=== PATIENT | female | born 1980 | race Caucasian/White ===

== ENCOUNTER 2020-06-24 10:04 | Outpatient (REF) | payer OTHER, SELFPAY ==
[2020-06-24 11:47] LABS: Hemoglobin 13.1 g/dl (12.0-16.0); Mean Corpuscular HGB Conc 32.8 g/dl (31.0-35.0); Mean Corpuscular Hemoglobin 30.1 pg (27.0-33.0); Mean Platelet Volume 10.1 fL (9.4-12.3); Platelet Count 343 X10*3/uL (160-400); Red Blood Count 4.35 X10*6/uL (4.20-5.50); Red Cell Distribution Width 12.2 % (11.0-16.0); White Blood Count 7.8 X10*3/uL (4.8-10.8)
[2020-06-24 12:03] LABS: Glucose Urine UA NEG (NEG); Leukocyte Esterase Urine NEG (NEG); Nitrite Urine NEG (NEG); PH 6.5 (5.0-8.0); Urine Blood NEG (NEG); Urine Ketones NEG (NEG); Urine Protein NEG (NEG-TRACE)
[2020-06-24 12:10] LABS: Appearance Urine CLOUDY; Color Urine YELLOW
[2020-06-24 12:18] LABS: Bacteria Urine 1+ /LPF; RBC Urine 0 /HPF (0); Squamous Epithelial Cell Urine 3+ /LPF; WBC Urine 0 /HPF (0-4)
[2020-06-24 12:22] LABS: Alanine Aminotransferase 22 U/L (0-31); Albumin Level 4.5 g/dL (3.5-5.0); Alkaline Phosphatase 64 U/L (39-117); Aspartate Amino Transferase 24 U/L (5-31); Bilirubin Total 0.4 mg/dL (0.0-1.0); Blood Urea Nitrogen 11 mg/dL (9-16); Cholesterol 196 mg/dL; Estimated Glomerular Filt Rate > 60; Glucose Fasting 89 mg/dL (60-99); HDL Cholesterol 54 mg/dL; LDL Cholesterol Calculated 131 mg/dl; Total Protein 7.2 g/dL (6.5-8.0); Triglycerides 56 mg/dL
[2020-06-24 12:37] LABS: Anion Gap 12 (12-20); Carbon Dioxide 25 mmol/L (22-29); Chloride 104 mmol/L (96-108); Potassium 4.3 mmol/l (3.3-5.1); Sodium 137 mmol/L (135-145)
== END 2020-06-24 10:05 | disposition home or self-care (01) ==
LOC: HO.HMGCLDS 10:04
PROVIDERS: PCP Internal Medicine; Visit Provider Internal Medicine
DX: Z00.00 Encounter for general adult medical examination without abnormal findings (principal)
CPT/HCPCS: 36415; 80053; 80061; 81001; 85027

== ENCOUNTER 2021-12-02 08:39 | Outpatient (REF) | payer OTHER, SELFPAY ==
[2021-12-02 11:40] LABS: Appearance Urine HAZY; Color Urine YELLOW; Glucose Urine UA NEG (NEG); Leukocyte Esterase Urine NEG (NEG); Nitrite Urine NEG (NEG); Specific Gravity - Urine 1.025 (1.005-1.025); Urine Blood 3+ (NEG); Urine Ketones NEG (NEG); Urine Protein NEG (NEG-TRACE)
[2021-12-02 11:52] LABS: Hemoglobin 13.3 g/dl (12.0-16.0); Mean Corpuscular HGB Conc 32.4 g/dl (31.0-35.0); Mean Corpuscular Volume 92.3 fL (80.0-98.0); Mean Platelet Volume 10.5 fL (9.4-12.3); Platelet Count 310 X10*3/uL (160-400); Red Blood Count 4.44 X10*6/uL (4.20-5.50); Red Cell Distribution Width 12.8 % (11.0-16.0); White Blood Count 6.6 X10*3/uL (4.8-10.8)
[2021-12-02 12:00] LABS: Alanine Aminotransferase 18 U/L (0-31); Albumin Level 4.4 g/dL (3.5-5.0); Alkaline Phosphatase 59 U/L (39-117); Anion Gap 11 (12-20); Aspartate Amino Transferase 21 U/L (5-31); Bilirubin Total 0.6 mg/dL (0.0-1.0); Blood Urea Nitrogen 11 mg/dL (9-16); Calcium 9.6 mg/dL (8.4-10.2); Carbon Dioxide 25 mmol/L (22-29); Chloride 107 mmol/L (96-108); Cholesterol 197 mg/dL; Estimated Glomerular Filt Rate > 60; Glucose Fasting 98 mg/dL (60-99); HDL Cholesterol 52 mg/dL; LDL Cholesterol Calculated 131 mg/dl; Potassium 4.6 mmol/L (3.3-5.1); Sodium 138 mmol/L (135-145); Total Protein 7.5 g/dL (6.5-8.0); Triglycerides 71 mg/dL
[2021-12-02 12:20] LABS: Vitamin D 25-OH Total 35.2 ng/mL (>30)
[2021-12-02 12:51] LABS: Mucus Urine 1+ /LPF; Squamous Epithelial Cell Urine 1+ /LPF; WBC Urine 0 /HPF (0-4)
== END 2021-12-02 08:40 | disposition home or self-care (01) ==
LOC: HO.HMGCLDS 08:39
PROVIDERS: PCP Internal Medicine; Visit Provider Internal Medicine
DX: Z00.00 Encounter for general adult medical examination without abnormal findings (principal)
CPT/HCPCS: 36415; 80053; 80061; 81001; 82306; 85027

== ENCOUNTER 2021-12-18 08:57 | Outpatient (REF) | payer OTHER, SELFPAY ==
[2021-12-18 11:19] LABS: Appearance Urine CLEAR; Color Urine YELLOW; Glucose Urine UA NEG (NEG); Leukocyte Esterase Urine NEG (NEG); Nitrite Urine NEG (NEG); PH 6.5 (5.0-8.0); Urine Blood NEG (NEG); Urine Ketones NEG (NEG); Urine Protein NEG (NEG-TRACE)
[2021-12-18 12:10] LABS: Squamous Epithelial Cell Urine 1+ /LPF
[2021-12-18 12:11] LABS: Bacteria Urine TRACE /LPF; RBC Urine 0-2 /HPF (0); WBC Urine 0 /HPF (0-4)
== END 2021-12-18 08:58 | disposition home or self-care (01) ==
LOC: HO.HMGCLDS 08:57
PROVIDERS: Visit Provider Internal Medicine
DX: Z00.00 Encounter for general adult medical examination without abnormal findings (principal); R31.29 Other microscopic hematuria
CPT/HCPCS: 81001

== ENCOUNTER 2023-02-18 10:08 | Outpatient (REF) | payer OTHER, SELFPAY | END 2023-02-18 10:09 | disposition home or self-care (01) | LOC: HO.HMGCLDS 10:08 | PROVIDERS: PCP Internal Medicine; Visit Provider Internal Medicine | DX: Z00.00 Encounter for general adult medical examination without abnormal findings (principal); E04.9 Nontoxic goiter, unspecified | CPT/HCPCS: 36415; 80053; 80061; 84443; 85025 ==

== ENCOUNTER 2023-03-08 09:56 | Outpatient (REF) | payer OTHER, SELFPAY ==
--- NOTE | ~2023-03-08 | US_ITS ---
EXAMINATION: US THYROID CLINICAL INFORMATION: Nontoxic goiter, unspecified. COMPARISON: None available. TECHNIQUE: Linear transducer grayscale and color Doppler examination with attention to the region of the thyroid. FINDINGS: SIZE: Measurements of the thyroid lobes and nodules are given in sagittal, anteroposterior and transverse dimensions respectively. Right Thyroid Lobe: 4.2 x 1.3 x 1.5 cm, volume 4.3 mL. Parenchyma: The gland echotexture is homogeneous. Thyroid vascularity is mildly increased. Left Thyroid Lobe: 4.1 x 1.1 x 1.5 cm, volume 3.5 mL. Parenchyma: The gland echotexture is homogeneous. Thyroid vascularity is mildly increased. Isthmus: 0.4 cm in maximum AP dimension. Estimated total number of nodules greater than or equal to 1 cm: 0. Flowers Salesperson nodules are described as follows: 1. Location: Left medial. Size: 0.3 x 0.2 x 0.4 cm, volume 0.01 mL. Nodule characteristics: Composition: Spongiform (0). Echogenicity: Anechoic (0). Shape: Not taller than wide (0). Margins: Smooth (0). Echogenic Foci: None (0). ACR TI-RADS total points: 0 ACR TI-RADS category: 1 2. Location: Left lateral. Size: 0.7 x 0.2 x 0.3 cm, volume 0.02 mL. Nodule characteristics: Composition: Spongiform (0). Echogenicity: Anechoic (0). Shape: Not taller than wide (0). Margins: Smooth (0). Echogenic Foci: None (0). ACR TI-RADS total points: 0 ACR TI-RADS category: 1 NODES: No lymphadenopathy is seen in the tissue surrounding the thyroid gland. US/US thyroid IMPRESSION: Left 0.7 cm TR 1 thyroid nodule. Thyroid gland vascularity is mildly increased. ACR TI-RADS RECOMMENDATION REFERENCE: Ultrasound-guided fine-needle aspiration, followup ultrasound, no further follow up. * TR1 (0 point) and TR2 (2 points): No FNA or follow up. * TR3 (3 points): FNA if more than or equal to 2.5 cm in maximum dimension, followup ultrasound in 1, 3 and 5 years if 1.5 to 2.4 cm in maximum dimension. * TR4 (4-6 points): FNA if more than or equal to 1.5 cm in maximum dimension, followup ultrasound in 1, 2, 3 and 5 years if 1 to 1.4 cm in maximum dimension. * TR5 (more than or equal to 7 points): FNA if more than or equal to 1 cm in maximum dimension, followup ultrasound every year for 5 years if 0.5 to 0.9 cm in maximum dimension. * TR3, TR4 or TR5 nodules that are below the size threshold for followup receive no follow up.
== END 2023-03-08 09:57 | disposition home or self-care (01) ==
LOC: HO.HMGCX 09:56
PROVIDERS: PCP Internal Medicine; Visit Provider Internal Medicine
DX: E04.9 Nontoxic goiter, unspecified (principal)
CPT/HCPCS: 76536

== ENCOUNTER 2023-08-06 08:54 | Outpatient (AMB) | payer OTHER, SELFPAY ==
[2023-08-06 11:21] VITALS: BP 118/78; PULSE 79; TEMP 37.1; O2SAT 97; BMI 30.3
--- NOTE | 2023-08-06 11:21 | AM.OFFWIN_ITS ---
Intake Vital Signs 08/06/23 11:21 Height 5 ft 5 in Weight 182 lb BMI 30.3 BP 118/78 Blood Pressure Location Lt brachial Position Sitting Pulse 79 Pulse Source Pulse Oximeter Temp 98.7 F Temp Source Oral Pulse Oximetry (%) 97 Oxygen Delivery Method Room Air Intake Visit Reasons: EP dry cough [id number] Intake Note: Patient is here with dry cough for 3+ weeks. Patient Tobacco Use Status: Never used Tobacco Allergies No Known Allergies Allergy (Verified 08/06/23 11:21) Do you need a note to return to daycare/school/sports/work: No HPI EP dry cough [id number] HPI Details 43 year old female patient presents toda y with a 3 week history of a dry cough. Reports she has tried otc medication and many natural remedies for the cough without relief. Denies any fever, chills, or shortness of breath. Denies any other sick symptoms. [facility] Medical History Microscopic hematuria Asthma Allergic rhinitis Normal colonoscopy Annual physical exam Mammogram normal Normal Pap smear Surgical History H/O colonoscopy No pertinent past surgical history Family History Father Stroke Mother Brain tumor Brother Colon cancer Brother No problems noted. Brother No problems noted. Paternal Aunt Colon cancer Sister No problems noted. Sister No problems noted. Sister No problems noted. Sister No problems noted. Daughter No problems noted. Social History Housing: House Alcohol intake: current Alcohol intake frequency: a few times a month Patient Tobacco Use Status: Never used Tobacco e-Cigarette/Vaping Use: Never Used service: No Current occupational status: employed Cognitive needs: No Hearing needs: No Vision needs: No Review of Systems Const All systems reviewed & are unremarkable except as noted in HPI and below Physical Exam Vital Signs: Last Vital Signs Temp 98.7 F 08/06/23 11:21 Pulse 79 08/06/23 11:21 BP 118/78 08/06/23 11:21 Pulse Ox 97 08/06/23 11:21 Oxygen Delivery Method Room Air 08/06/23 11:21 BMI result Body Mass Index 30.3 Const General: cooperative and no acute distress HEENT Head: Yes normal to inspection and Yes normocephalic Ears: hearing grossly normal bilaterally General nose exam: Normal external nose present Face and sinus: Yes normal facial exam Throat: Yes posterior oropharynx normal Neck Neck: Yes no lymphadenopathy Resp Effort & Inspection: normal respiratory effort and Actively coughing Quality: dry (actively coughing) Auscultation: clear to auscultation bilaterally Cardio Jugular venous distension: no JVD Palpation: normal PMI Rate: regular rate Rhythm: regular rhythm Skin General skin exam: no rashes or lesions noted Extrem General: Yes capillary refill normal and Yes no clubbing, cyanosis or edema Psych Mental Status: mental status grossly normal Speech and movement: Normal speech and movement present Assessment & Plan Assessment & Plan (1) Persistent cough for 3 weeks or longer: Code(s): R05.3 - Chronic cough Plan: Will start on prednisone and benzonatate for persistent dry cough. Reviewed indications, use, possible s/e of medications. She can continue to utilize home remedies (tea, honey etc.) for her symptoms. If she does not improve with treatment or if she develops any worsning cough/shortness of breath, she should return to the clinic for further evaluation. She agrees to plan. Medications: New benzonatate 100 mg PO BID PRN 14 caps 0RF cough 7 days R05.9 - Cough, unspecified prednisone 20 mg PO BID 10 tabs 0RF 5 days R05.3 - Chronic cough Coding Level of Care Code Est Pt Level 3 (47093) Diagnoses Persistent cough for 3 weeks or longer R05.3
== END 2023-08-06 12:05 | disposition home or self-care (01) ==
PROVIDERS: PCP Internal Medicine; Visit Provider Nurse Practitioner Family
DX: R05.3 Chronic cough (principal)
CPT/HCPCS: 99213

== ENCOUNTER 2023-10-30 09:13 | Outpatient (REF) | payer OTHER, SELFPAY ==
[2023-10-30 12:29] LABS: Alanine Aminotransferase 24 U/L (0-31); Albumin Level 4.4 g/dL (3.5-5.0); Alkaline Phosphatase 66 U/L (39-117); Anion Gap 11 (12-20); Aspartate Amino Transferase 22 U/L (5-31); Bilirubin Total 0.7 mg/dL (0.0-1.0); Blood Urea Nitrogen 9 mg/dL (9-16); Calcium 9.9 mg/dL (8.4-10.2); Carbon Dioxide 26 mmol/L (22-29); Chloride 108 mmol/L (96-108); Cholesterol 214 mg/dL (<200); Estimated Glomerular Filt Rate > 60; Glucose Fasting 96 mg/dL (60-99); HDL Cholesterol 51 mg/dL (>40); LDL Cholesterol Calculated 143 mg/dL (<100); Potassium 4.2 mmol/L (3.3-5.1); Sodium 141 mmol/L (135-145); Total Protein 7.6 g/dL (6.5-8.0); Triglycerides 101 mg/dL (<150)
== END 2023-10-30 09:14 | disposition home or self-care (01) ==
LOC: HO.HMGCLDS 09:13
PROVIDERS: PCP Internal Medicine; Visit Provider Internal Medicine
DX: E78.5 Hyperlipidemia, unspecified (principal)
CPT/HCPCS: 36415; 80053; 80061

== ENCOUNTER 2024-02-11 13:21 | Outpatient (REF) | payer OTHER, SELFPAY ==
--- NOTE | ~2024-02-11 | US_ITS ---
EXAMINATION: US THYROID CLINICAL INFORMATION: Nontoxic single thyroid nodule. COMPARISON: Ultrasound soft tissue head/neck thyroid dated 03/08/2023. TECHNIQUE: Linear transducer grayscale and color Doppler examination with attention to the region of the thyroid. FINDINGS: SIZE: Measurements of the thyroid lobes and nodules are given in sagittal, anteroposterior and transverse dimensions respectively. Right Thyroid Lobe: 4.1 x 1.4 x 1.2 cm, volume 3.8 mL. Previously 4.2 x 1.3 x 1.5 cm, volume 4.3 mL. Parenchyma: The gland echotexture is homogeneous. Thyroid vascularity is normal. Left Thyroid Lobe: 4.0 x 1.0 x 1.4 cm, volume 3.0 mL. Previously 4.1 x 1.1 x 1.5 cm, volume 3.5 mL. Parenchyma: The gland echotexture is homogeneous. Thyroid vascularity is normal. Isthmus: 0.42 cm in maximum AP dimension. Previously 0.40 cm. Estimated total number of nodules greater than or equal to 1 cm: 0. Internal Grinder Tender nodules are described as follows: 1. Location: Left inferior. Size: 0.33 x 0.12 x 0.31 cm, volume 0.01 mL. Previously: 0.35 x 0.15 x 0.40 cm, volume 0.01 mL. Nodule characteristics: Composition: Cystic(0). ACR TI-RADS total points: 0 Previous: 0 ACR TI-RADS category: 1 Previous: 1 Significant change in size (>/= 20% in 2 dimensions and minimal increase of 2 mm or 50% or greater increase in volume): No Change in features: No Change in ACR TI-RADS risk category: No 2. Location: Left mid. Size: 0.45 x 0.14 x 0.26 cm, volume 0.01 mL. Previously: 0.70 x 0.17 x 0.29 cm, volume 0.02 mL. Nodule characteristics: Composition: Spongiform (0). Echogenicity: Anechoic (0). Shape: Not taller than wide (0). Margins: Smooth (0). Echogenic Foci: None (0). ACR TI-RADS total points: 0 Previous: 0 ACR TI-RADS category: 1 Previous: 1 Significant change in size (>/= 20% in 2 dimensions and minimal increase of 2 mm or 50% or greater increase in volume): No Change in features: No Change in ACR TI-RADS risk category: No 3. Location: Left superior. Size: 0.33 x 0.18 x 0.26 cm, volume 0.01 mL. Previously: Not seen on the previous study. Nodule characteristics: Composition: Spongiform (0). Echogenicity: Anechoic (0). Shape: Not taller than wide (0). Margins: Smooth (0). Echogenic Foci: None (0). ACR TI-RADS total points: 0 ACR TI-RADS category: 1 NODES: No lymphadenopathy is seen in the tissue surrounding the thyroid gland. US/US thyroid IMPRESSION: Multiple subcentimeter thyroid nodules. This study was presented today February 23, 2024 for interpretation. Stat results provided at this time as requested by referring provider. ACR TI-RADS RECOMMENDATION REFERENCE: Ultrasound-guided fine-needle aspiration, follow up ultrasound, no further followup. * TR1 (0 point) and TR2 (2 points): No FNA or followup * TR3 (3 points): FNA if more than or equal to 2.5 cm in maximum dimension, follow up ultrasound in 1, 3 and 5 years if 1.5 to 2.4 cm in maximum dimension. * TR4 (4-6 points): FNA if more than or equal to 1.5 cm in maximum dimension, follow up ultrasound in 1, 2, 3 and 5 years if 1 to 1.4 cm in maximum dimension. * TR5 (more than or equal to 7 points): FNA if more than or equal to 1 cm in maximum dimension, follow up ultrasound every year for 5 years if 0.5 to 0.9 cm in maximum dimension. * TR3, TR4 or TR5 nodules that are below the size threshold for follow up receive no followup.
== END 2024-02-11 13:22 | disposition home or self-care (01) ==
LOC: HO.HMGCX 13:21
PROVIDERS: PCP Internal Medicine; Visit Provider Internal Medicine
DX: E04.1 Nontoxic single thyroid nodule (principal)
CPT/HCPCS: 76536

== ENCOUNTER 2024-02-23 12:53 | Outpatient (AMB) | payer OTHER, SELFPAY ==
[2024-02-23 13:12] VITALS: BP 118/74; PULSE 78; O2SAT 96; BMI 30.6
--- NOTE | 2024-02-23 13:12 | A.OFFPC_ITS ---
Vital Signs 02/23/24 13:12 Height 5 ft 5 in Weight 184 lb BMI 30.6 BP 118/74 Blood Pressure Location Rt brachial Position Sitting Pulse 78 Pulse Source Pulse Oximeter Pulse Oximetry (%) 96 Oxygen Delivery Method Room Air Intake Visit Reasons: Annual PE Intake Note: Pt is here today for PE. Allergies No Known Allergies Allergy (Verified 02/23/24 13:12) Medication List - Last Reconciled 02/23/24 by Ana Laura Lizama MD cholecalciferol (vitamin D3) (Vitamin D3) 50 mcg PO DAILY Tobacco use date assessed: 02/23/24 Dental Screening Dental Screen Date: 02/23/24 Did you have a dental visit in the last 12 months?: Yes Did you have a dental problem in the last 6 months where you did not have access to dental care?: No Was dental information given to patient?: Patient has dentist HPI Annual PE HPI Details Pt presents for PE. [facility] Medical History (Updated 02/23/24 @ 14:40 by Ana Laura Lizama MD) Microscopic hematuria Asthma Allergic rhinitis Normal colonoscopy Annual physical exam Mammogram normal Normal Pap smear Surgical History H/O colonoscopy No pertinent past surgical history Family History Father Stroke Mother Brain tumor Brother Colon cancer Brother No problems noted. Brother No problems noted. Paternal Aunt Colon cancer Sister No problems noted. Sister No problems noted. Sister No problems noted. Sister No problems noted. Daughter No problems noted. Social History Housing: House Alcohol intake: current Alcohol intake frequency: a few times a month Patient Tobacco Use Status: Never used Tobacco e-Cigarette/Vaping Use: Never Used service: No Current occupational status: employed Cognitive needs: No Hearing needs: No Vision needs: No Questionnaire PHQ-9 Over the last 2 weeks, how often have you been bothered by any of the following problems? 1. Little interest or pleasure in doing things: not at all 2. Feeling down, depressed, or hopeless: not at all 3. Trouble falling or staying asleep, or sleeping too much: not at all 4. Feeling tired or having little energy: not at all 5. Poor appetite or overeating: not at all 6. Feeling bad about yourself - or that you are a failure or have let yourself or your family down: not at all 7. Trouble concentrating on things, such as reading the newspaper or watching television: not at all 8. Moving or speaking so slowly that other people could have noticed. Or the opposite - being so fidgety or restless that you have been moving around a lot more than usual: not at all 9. Thoughts that you would be better off or of hurting yourself in some way: not at all Total score: 0 Depression Screening Interpretation: Negative Depression Screening Done: Yes Source: Developed by Drs. Boone Blum, Erin Vargas, Fredo Cormier and colleagues, with an educational fly from [employer]. Thrive Questionnaire Date Thrive assessed: 02/23/24 I am a: Patient What is your living situation today?: I have a steady place to live Within the past 12 months, did the food you bought not last and you didn't have the money to get more?: Never true Within the past 12 months, did you worry whether your food would run out before you got money to buy more?: Never true Do you have trouble paying for medicines?: No Do you have trouble getting transportation to medical appointments?: No Do you have trouble paying your heating and electricity bill?: No Do you have trouble taking care of your child, family member or friend?: No Do you have trouble with day-to-day activities such as bathing, preparing meals, shopping, managing finances, etc.?: No Are you currently unemployed and looking for a job?: No Are you interested in more education?: No Please select the resources that you would like help with: None THRIVE Score: 0 AUDIT C Alcohol Use Questionnaire (AUDIT-C) 1. How often do you have a drink containing alcohol?: Monthly or less 2. How many drinks containing alcohol do you have on a typical day when you are drinking?: 1 or 2 3. How often do you have six or more drinks on one occasion?: Never Total Score: 1 BELLA-7 AMB Questionnaire BELLA-7 Date BELLA - 7 assessed: 02/23/24 Feeling nervous, anxious, or on edge: 0 = Not at all Not being able to stop or control worryin = Not at all Worrying too much about different things: 0 = Not at all Trouble relaxin = Not at all Being so restless that it is hard to sit still: 0 = Not at all Becoming easily annoyed or irritable: 0 = Not at all Feeling afraid as if something awful might happen: 0 = Not at all Total BELLA-7 score (0-4 normal; 5-9 mild; 10-14 moderate; 15-21 severe): 0 Source: Developed by Drs. Boone Blum, Erin Vargas, Fredo Cormier and colleagues, with an educational fly from [employer]. Review of Systems Const All systems reviewed & are unremarkable except as noted in HPI and below Reports no additional complaints Eyes Reports no additional complaints ENT Reports no additional complaints Card Reports no additional complaints Resp Reports no additional complaints GI Reports no additional complaints Reports no additional complaints Physical exam (Primary Care) Vital Signs: Last Vital Signs Pulse 78 02/23/24 13:12 BP 118/74 02/23/24 13:12 Pulse Ox 96 02/23/24 13:12 Oxygen Delivery Method Room Air 02/23/24 13:12 BMI result Body Mass Index 30.6 Tobacco/Smoking Status: Tobacco use Status Tobacco use date assessed 02/23/24 02/23/24 13:13 Patient Tobacco Use Status Never used Tobacco 02/23/24 13:13 e-Cigarette/Vaping Use Never Used 02/23/24 13:13 PHQ-9: PHQ-9 Score PHQ-9: Total score 0 02/23/24 13:37 Depression Screening Interpretation: Negative Thrive Assessment: Date of Thrive Assessment Date Thrive assessed 02/23/24 02/23/24 13:25 Const General: no acute distress HENMT Head: Yes normal to inspection Ears: hearing grossly normal bilaterally General nose exam: Normal external nose present Face and sinus: Yes normal facial exam Mouth: Normal oral and palatal mucosa present Throat: Yes posterior oropharynx normal Eyes General: appearance normal, both eyes and all related structures Neck Neck: Yes supple Resp Effort & Inspection: normal respiratory effort Auscultation: clear to auscultation bilaterally Cardio Rhythm: regular rhythm Heart sounds: S1 normal heart sound present and S2 normal heart sound present GI Inspection: Yes normal to inspection Palpation (GI): Soft to palpation Percussion: Yes normal to percussion Auscultation: normal bowel sounds Assessment and Plan Assessment & Plan (1) Hyperlipidemia: Code(s): E78.5 - Hyperlipidemia, unspecified Plan: Low-cholesterol diet regular physical activity discussed with the patient (2) Annual physical exam: Code(s): Z00.00 - Encounter for general adult medical examination without abnormal findings Plan: Well-balanced diet regular physical activity discussed with the patient. She has up-to-date with the mammogram and Pap smear by roadside mechanic. Patient had negative colonoscopy last year (3) Mammogram normal: Comment: 02/2020, 04/05, 04/06 (4) Thyroid nodule: Comment: 01/2024, multinodular goiter, 3 small nodule <1 cm, f/u 1 year Code(s): E04.1 - Nontoxic single thyroid nodule Plan: Monitor annual thyroid ultrasound Orders: Orders Comprehensive [place]. Panel Fast 1 Year Z00.00 - Encounter for general adult medical examination without abnormal findings Complete Blood Count Auto Diff 1 Year Z00.00 - Encounter for general adult medical examination without abnormal findings UA CC w/rflx Micro + Cult 1 Year Z00.00 - Encounter for general adult medical examination without abnormal findings US thyroid 1 Year E04.1 - Nontoxic single thyroid nodule Lipid Panel 1 Year Z00.00 - Encounter for general adult medical examination without abnormal findings TSH reflex Free T4 1 Year Z00.00 - Encounter for general adult medical examination without abnormal findings Coding Level of Care Code Est Pt Prev Care 40-64y(58684) Diagnoses Hyperlipidemia E78.5 Annual physical exam Z00.00 Mammogram normal Thyroid nodule E04.1
== END 2024-02-23 14:41 | disposition home or self-care (01) ==
PROVIDERS: PCP Internal Medicine; Visit Provider Internal Medicine
DX: E78.5 Hyperlipidemia, unspecified (principal); Z00.00 Encounter for general adult medical examination without abnormal findings; E04.1 Nontoxic single thyroid nodule
CPT/HCPCS: 99396

== ENCOUNTER 2025-02-22 08:45 | Outpatient (REF) | payer OTHER, SELFPAY ==
--- NOTE | ~2025-02-22 | US_ITS ---
EXAMINATION: US THYROID HISTORY: E04.1 - Nontoxic single thyroid nodule TECHNIQUE: Real-time grayscale ultrasound imaging was performed and images were reviewed. COMPARISON: Comparison is made with the prior examination dated 02/03/2024. FINDINGS: SIZE: The right thyroid lobe measures 4.2 x 1.6 x 1.1 cm. The left thyroid lobe measures 4.4 x 1.4 x 1.7 cm. The isthmus measures 4 mm. FLOW: Flow to the gland is normal. ECHOGENICITY: The echotexture of the gland is homogeneous. NODULES: Again seen is a 3 x 2 x 2 mm spongiform nodule at the upper pole of the left thyroid lobe, a 4 x 2 x 4 mm cyst in the midportion of the left thyroid lobe, and a 3 x 2 x 1 mm spongiform nodule in the midportion of the left thyroid lobe. US/US thyroid IMPRESSION: Subcentimeter cysts and spongiform nodules in the left thyroid lobe. No follow-up is required. ACR TI-RADS Guidelines TR1 (0 points): Benign, No follow-up or biopsy required TR2 (2 points): Not Suspicious, No biopsy or follow up indicated TR3 (3 points): Mildly Suspicious, FNA if >= 2.5 cm, Follow if >= 1.5 cm TR4 (4-6 points): Moderately Suspicious, FNA if >= 1.5 cm, Follow if >= 1.0 cm TR5 (>=7 points): Highly Suspicious, FNA if >= 1.0 cm, Follow if >= 0.5 cm Electronically signed by: Boone Lara MD 02/22/2025 10:25 AM EDT
--- OUTSIDE RECORDS SUMMARY | 2025-02-22 08:59 | XMS_ITS | Clinical Summary ---
Author Organization [facility] Address [address] [place] [address] Care Team Providers Care Medical Assembly Name Role Phone Ana Laura Lizama MD Primary Care Provider [phone] Surgical History Surgery Date Site/Laterality Comments WISDOM TOOTH EXTRACTION 5 yrs ago PROCEDURE: HISTORICAL WISDOM TEETH EXTRACTION COLONOSCOPY 10/26/14 PROCEDURE: COLOREC CANC SCRN,COLONOSCPY HI RISK; COMMENT: normal Medical History Medical History Date Comments Family history of colon cancer D X:Family history of colon cancer Encounter for screening colonoscopy DX:Encounter for screening colonoscopy Family History Medical History Relation Name Comments Colon cancer Brother 1 at the age of 2 7, doing well is followed q 6 mo Other: heart attack at age 54 Father HTN, Diabetes Other: brain cancer Mother age 46 Other cancer Paternal Grandmother leukemi a Other: bone tumor Sister 1 details un known. Patient says not bad Breast cancer Neg Hx Ovarian cancer Neg Hx Uterine cancer Neg Hx Relation Name Status Comments Brother 1 Brother 2 Alive Daughter Alive Father Alive Maternal Grandfather Maternal Grandmother Alive Mother Paternal Grandfather Paternal Grandmother Sister 1 Sister 2 Alive Social History Tobacco Use Types Packs/Day Years Used Date Smoking Tobacco: Never Smokeless Tobacco: Never Alcohol Use Standard Drinks/Week Comments No 0 (1 standard drink = 0.6 oz pur e alcohol) Comments Unknown Sex and Gender Information Value Date Recorded Sex Assigned at Not on file Legal Sex Female 10:07 PM EST Gender Identity Not on file Sexual Orientation Not on file Obstetrics History Last Filed Vital Signs Vital Sign Reading Time Taken Comments Blood Pressure 115/85 03/20/2024 3:56 PM EDT Pulse 78 03/20/2024 3:56 PM EDT Temperature - - Respiratory Rate - - Oxygen Saturation - - Inhaled Oxygen Concentration - - Weight 84.8 kg (186 lb 14.4 oz) 03/20/2024 3:56 PM EDT Height 165.1 cm (5' 5 ) 03/20/2024 3:56 PM EDT Body Mass Index 31.1 03/20/2024 3:56 PM EDT Plan of Treatment Upcoming Encounters Date Type Department Care Team (Late st Contact Info) Description 04/30/2025 3:30 PM EDT Appointment Radiology Department [address] [address] Health Maintenance Due Date Last Done Comments Hepatitis B Vaccines (1 of 3 - 19+ 3-dose series) 1998 DTaP,Tdap,and Td Vaccines (2 - Td or Tdap) 07/15/2022 07/15/2012 Cholesterol Screening (Lipid Panel) 07/25/2022 Colorectal Cancer Screening: Colonoscopy 07/25/2022 Depression Screening 07/25/2022 HIV Screening 07/25/2022 Hepatitis C Screening 07/25/2022 Social Influencers of Health Screening 07/25/2022 COVID-19 Vaccine ( season) 2024 Cervical Cancer Screening: Pap Smear 09/08/2024 09/08/2021 Influenza Vaccine (#1) 2025 08/31/2012 Breast Cancer Screening 04/20/2026 04/20/20, 04/20/2024, 04/14/2023, Additional history exists HIB Vaccines Aged Out No longer eligi ble based on patient's age to complete this topic HPV Vaccines Aged Out No longer eligi ble based on patient's age to complete this topic Hepatitis A Vaccines Aged Out No long er eligible based on patient's age to complete this topic IPV Vaccines Aged Out No longer eligi ble based on patient's age to complete this topic MMR Vaccines Aged Out No longer eligi ble based on patient's age to complete this topic Meningococcal ACWY Vaccine Aged Out N o longer eligible based on patient's age to complete this topic Meningococcal B Vaccine Aged Out No l onger eligible based on patient's age to complete this topic Pneumococcal Vaccine: Pediatrics (0 to 5 Years) and At-Risk Patients (6 to 49 Years) Aged Out No longer eligible based on patient's age to complete this topic RSV Immunization Patients Under 20 months Aged Out No longer eligible based on patient's age to complete this topic Varicella Vaccines Aged Out No longer eligible based on patient's age to complete this topic Procedures Procedure Name Priority Date/Time Associated Diagnosis Comments SCREENING MAMMOGRAPHY BI 2-VIEW BREAST INC CAD Routine 04/20/2024 3:48 PM EDT Encounter for screening mammogram for malignant neoplasm of breast PAP SMEAR Routine 09/08/2021 from Last 3 Months or Most Recently Relevant to Health Maintenance Results * SCREENING MAMMOGRAPHY BI 2-VIEW BREAST INC CAD (04/20/2024 3:48 PM EDT) Anatomical Region Laterality Modality Radiographic Komal ging 04/14/2023 3:34 PM EDT Narrative 04/21/2024 12:48 PM EDT This is a summary report. The complete report is available in the patient's medical record. If you cannot access the medical record, please contact the sending organization for a detailed fax or copy. Study: SCREENING MAMMOGRAPHY BI 2-VIEW BREAST INC CAD Technique: Bilateral full-field digital screening mammography is obtained and read in conjunction with computer aided detection. Tomosynthesis as well as 2D C-View imaging were obtained. Comparison: Comparison made to multiple priors, most recent April 14, 2023, and most remote March 29, 2019. Breast composition: There are scattered areas of fibroglandular density. Bilateral breasts: No significant masses, suspicious calcifications or other abnormalities are seen in either breast. IMPRESSION: Impression: Bilateral breasts: Negative, no specific mammographic evidence of malignancy. Normal interval follow-up is recommended in 12 months. BI-RADS: Category 1: Negative [facility] [address] [place] [id number] [phone] Procedure Note Billy West MD - 07/10/2024 This is a summary report. The complete report is available in thepatient's medical record. If you cannot access the medical record, pleasecontact the sending organization for a detailed fax or copy. Study: SCREENING MAMMOGRAPHY BI 2-VIEW BREAST INC CAD Technique: Bilateral full-field digital screening mammography is obtainedand read in conjunction with computer aided detection. Tomosynthesis aswell as 2D C-View imaging were obtained. Comparison: Comparison made to multiple priors, most recent March, and most remote March 29, 2019. Breast composition: There are scattered areas of fibroglandular density. Bilateral breasts: No significant masses, suspicious calcifications orother abnormalities are seen in either breast. IMPRESSION: Impression: Bilateral breasts: Negative, no specific mammographic evidence ofmalignancy. Normal interval follow-up is recommended in 12 months. BI-RADS: Category 1: Negative [facility] [address] [address] [phone] Ana Laura Lizama MD IMG XR PROCEDURES Final Result * Pap smear (09/08/2021) 09/08/2021 Narrative HISTORICAL TESTING LAB RESULTING AGENCY - 09/25/2021 11:51 AM EST [id number] THINPREP PAP, IMAGED: NEGATIVE FOR SQUAMOUS INTRAEPITHELIAL LESION AND MALIGNANCY . SHIFT IN DEB, SUGGESTIVE OF BACTERIAL VAGINOSIS. NOTE: ADEQUACY EVALUATED SATISFACTORY FOLLOWING REPROCESSING WITH THE ACID WASH PROCEDURE. NOTE: THE PAP TEST IS A SCREENING TEST WITH AN INHERENT FALSE NEGATIVE RATE. AUTOMATED PRESCREENING OF ALL LIQUID BASED SPECIMENS IS PERFORMED BY THE THINPREP IMAGING SYSTEM UNLESS OTHERWISE STATED. BRITTANI ALTAMIRANO(ASCP) (CASE ELECTRONICALLY SIGNED 09 24 2021) RESULT OF APTIMA HIGH RISK HPV ASSAY: HIGH RISK HPV: NEGATIVE (SEROTYPES 16,18,31,33,35,39,45,51,52,56,58,59,66,68) COMPLETED ON 2021-09-10 ADEQUACY: SATISFACTORY ENDOCERVICAL/TRANSFORMATION ZONE COMPONENT ABSENT. SOURCE: THINPREP PAP HPV ANY DX: REFLEX 16 AND 18, CERVICAL, IMAGED CLINICAL INFORMATION: HPV ANY DIAGNOSIS. LMP 08/12/21, Z12.4 Kathy Lin [facility] LAB CYTOLOGY ORDERABLES Final R esult HISTORICAL TESTING LAB RESULTING AGENCY from Last 3 Months or Most Recently Relevant to Health Maintenance Care Teams Medical Assembly Relationship Specialty Start Date End Date Ana Laura Lizama MD PCP - General Internal Medicine 01/12/19
[2025-02-22 10:22] LABS: MANUAL DIFF FLAG NO
[2025-02-22 10:31] LABS: Appearance Urine Clear; Glucose Urine UA Negative (Negative); PH 8.0 (5.0-9.0); Specific Gravity - Urine 1.010 (1.005-1.025); UMIC TRIGGER UACC YES
[2025-02-22 10:42] LABS: Hematocrit 40.2 % (37.0-47.0); Hemoglobin 13.7 g/dl (12.0-16.0); Imm Gran Abs Auto 0.01 X10*3/uL (0.00-0.03); Imm Gran Pct Auto 0.1 % (0.0-0.4); Lymphocytes Absolute Auto 2.3 X10*3/uL (1.2-4.9); Mean Corpuscular HGB Conc 34.1 g/dl (31.0-35.0); Mean Corpuscular Hemoglobin 30.4 pg (27.0-33.0); Mean Corpuscular Volume 89.3 fL (80.0-98.0); NRBC Abs Auto 0.000 X10*3/uL (0.0-0.012); NRBC Pct Auto 0.0 /100WBC (0.0-0.2); Platelet Count 326 X10*3/uL (160-400); Red Blood Count 4.50 X10*6/uL (4.20-5.50); White Blood Count 6.8 X10*3/uL (4.8-10.8)
[2025-02-22 11:25] LABS: Alanine Aminotransferase 39 U/L (0-31); Albumin Level 4.7 g/dL (3.5-5.0); Alkaline Phosphatase 76 U/L (39-117); Anion Gap 9 (12-20); Aspartate Amino Transferase 34 U/L (5-31); Blood Urea Nitrogen 11 mg/dL (9-16); Calcium 9.5 mg/dL (8.4-10.2); Carbon Dioxide 26 mmol/L (22-29); Chloride 107 mmol/L (96-108); Cholesterol 229 mg/dL (<200); Estimated Glomerular Filt Rate > 60; HDL Cholesterol 51 mg/dL (>40); Potassium 3.9 mmol/L (3.3-5.1); Sodium 138 mmol/L (135-145); Total Protein 7.7 g/dL (6.5-8.0); Triglycerides 130 mg/dL (<150)
== END 2025-02-22 08:46 | disposition home or self-care (01) ==
LOC: HO.HMGCX 08:45
PROVIDERS: PCP Internal Medicine; Visit Provider Internal Medicine
DX: Z00.00 Encounter for general adult medical examination without abnormal findings (principal); E04.1 Nontoxic single thyroid nodule
CPT/HCPCS: 36415; 76536; 80053; 80061; 81001; 84443; 85025

== ENCOUNTER → 2025-02-22 08:50 | Outpatient (BNV) | payer OTHER, SELFPAY | PROVIDERS: PCP Internal Medicine; Visit Provider Radiology Diagnostic Radiology | DX: E04.2 Nontoxic multinodular goiter (principal) | CPT/HCPCS: 76536 ==

== ENCOUNTER 2025-03-01 09:02 | Outpatient (AMB) | payer OTHER, SELFPAY ==
--- NOTE | 2025-03-01 09:05 | MHC.PC.OV ---
Vital Signs 03/01/25 09:08 Height 5 ft 5 in Weight 188 lb BMI 31.3 BP 120/78 Blood Pressure Location Lt brachial Position Sitting Respiration 18 Pulse 73 Pulse Source Pulse Oximeter Pulse Oximetry (%) 97 Oxygen Delivery Method Room Air Intake Visit Reasons: PE Intake Note: Pt is here today for PE. Allergies No Known Allergies Allergy (Verified 03/01/25 09:11) Medication List - Last Reconciled 03/01/25 by Ana Laura Lizama MD cholecalciferol (vitamin D3) (Vitamin D3) 50 mcg PO DAILY Tobacco use date assessed: 03/01/25 Dental Screening Dental Screen Date: 03/01/25 Did you have a dental visit in the last 12 months?: Yes Did you have a dental problem in the last 6 months where you did not have access to dental care?: No Was dental information given to patient?: Patient has dentist HPI PE HPI Details Pt presents for PE. Patient is going to [place] today for 2 weeks. [facility] Medical History (Updated 03/01/25 @ 09:54 by Ana Laura Lizama MD) Microscopic hematuria Asthma Allergic rhinitis Normal colonoscopy Annual physical exam Mammogram normal Normal Pap smear Surgical History (Updated 03/01/25 @ 09:30 by Ana Laura Lizama MD) H/O colonoscopy No pertinent past surgical history Family History Father Stroke Mother Brain tumor Brother Colon cancer Brother No problems noted. Brother No problems noted. Paternal Aunt Colon cancer Sister No problems noted. Sister No problems noted. Sister No problems noted. Sister No problems noted. Daughter No problems noted. Other H/O colonoscopy Social History Housing: House Alcohol intake: current Alcohol intake frequency: a few times a month Patient Tobacco Use Status: Never used Tobacco e-Cigarette/Vaping Use: Never Used service: No Current occupational status: employed Cognitive needs: No Hearing needs: No Vision needs: No Questionnaire PHQ-9 Over the last 2 weeks, how often have you been bothered by any of the following problems? 1. Little interest or pleasure in doing things: not at all 2. Feeling down, depressed, or hopeless: not at all 3. Trouble falling or staying asleep, or sleeping too much: not at all 4. Feeling tired or having little energy: not at all 5. Poor appetite or overeating: not at all 6. Feeling bad about yourself - or that you are a failure or have let yourself or your family down: not at all 7. Trouble concentrating on things, such as reading the newspaper or watching television: not at all 8. Moving or speaking so slowly that other people could have noticed. Or the opposite - being so fidgety or restless that you have been moving around a lot more than usual: not at all 9. Thoughts that you would be better off or of hurting yourself in some way: not at all Total score: 0 Depression Screening Interpretation: Negative Depression Screening Done: Yes 12907 - PHQ-9 Billing: Yes Source: Developed by Drs. Boone Blum, Erin Vargas, Fredo Cormier and colleagues, with an educational fly from [employer]. Thrive Questionnaire Date Thrive assessed: 03/01/25 I am a: Patient What is your living situation today?: I have a steady place to live Within the past 12 months, did the food you bought not last and you didn't have the money to get more?: Never true Within the past 12 months, did you worry whether your food would run out before you got money to buy more?: Never true Do you have trouble paying for medicines?: No Do you have trouble getting transportation to medical appointments?: No Do you have trouble paying your heating and electricity bill?: No Do you have trouble taking care of your child, family member or friend?: No Do you have trouble with day-to-day activities such as bathing, preparing meals, shopping, managing finances, etc.?: No Are you currently unemployed and looking for a job?: No Are you interested in more education?: No Please select the resources that you would like help with: None Currently or been in a relationship where the following occur: No concerns reported THRIVE Score: 0 AUDIT C Alcohol Use Questionnaire (AUDIT-C) 1. How often do you have a drink containing alcohol?: 2-4 times a month 2. How many drinks containing alcohol do you have on a typical day when you are drinking?: 1 or 2 3. How often do you have six or more drinks on one occasion?: Never Total Score: 2 BELLA-7 AMB Questionnaire BELLA-7 Date BELLA - 7 assessed: 03/01/25 Feeling nervous, anxious, or on edge: 0 = Not at all Not being able to stop or control worryin = Not at all Worrying too much about different things: 0 = Not at all Trouble relaxin = Not at all Being so restless that it is hard to sit still: 0 = Not at all Becoming easily annoyed or irritable: 0 = Not at all Feeling afraid as if something awful might happen: 0 = Not at all Total BELLA-7 score (0-4 normal; 5-9 mild; 10-14 moderate; 15-21 severe): 0 Source: Developed by Drs. Boone Blum, Erin Vargas, Fredo Cormier and colleagues, with an educational fly from [employer]. BELLA-7 Assessment Billing BELLA-7 Assessment Tool: BELLA-7 Assessment 97178 Review of Systems Const All systems reviewed & are unremarkable except as noted in HPI and below Eyes Reports no additional complaints ENT Reports no additional complaints Card Reports no additional complaints Resp Reports no additional complaints GI Reports no additional complaints Reports no additional complaints Physical exam (Primary Care) Vital Signs: Last Vital Signs Pulse 73 03/01/25 09:08 Resp 18 03/01/25 09:08 BP 120/78 03/01/25 09:08 Pulse Ox 97 03/01/25 09:08 Oxygen Delivery Method Room Air 03/01/25 09:08 BMI result Body Mass Index 31.3 Tobacco/Smoking Status: Tobacco use Status Tobacco use date assessed 03/01/25 03/01/25 09:15 Patient Tobacco Use Status Never used Tobacco 03/01/25 09:15 e-Cigarette/Vaping Use Never Used 03/01/25 09:05 PHQ-9: PHQ-9 Score PHQ-9: Total score 0 03/01/25 09:15 Depression Screening Interpretation: Negative Thrive Assessment: Date of Thrive Assessment Date Thrive assessed 03/01/25 03/01/25 09:15 Currently or been in a relationship where the following occur: No concerns reported Const General: no acute distress HENMT Head: Yes normal to inspection Ears: hearing grossly normal bilaterally Face and sinus: Yes normal facial exam Mouth: Normal oral and palatal mucosa present Throat: Yes posterior oropharynx normal Eyes General: appearance normal, both eyes and all related structures Neck Neck: Yes no lymphadenopathy and Yes supple Resp Effort & Inspection: normal respiratory effort Auscultation: clear to auscultation bilaterally Cardio Rhythm: regular rhythm Heart sounds: S1 normal heart sound present and S2 normal heart sound present GI Inspection: Yes normal to inspection Palpation (GI): Soft to palpation Percussion: Yes normal to percussion Auscultation: normal bowel sounds Coding Level of Care Code Est Pt Prev Care 40-64y(08907) Diagnoses Annual physical exam Z00.00 Hyperlipidemia E78.5 Additional Codes BELLA-7 Assessment Billing - BELLA-7 Assessment Tool: BELLA-7 Assessment 53431 ([id number]) PHQ-9 - 45542 - PHQ-9 Billing: Yes ([id number]) Assessment & Plan Assessment & Plan (1) Annual physical exam: Code(s): Z00.00 - Encounter for general adult medical examination without abnormal findings Category: Medical Plan: Well-balanced diet regular physical activity weight loss discussed with the patient. She is established with analytical lab analyst for pelvic exam and mammogram. patient had a negative colonoscopy in 2022 (2) Hyperlipidemia: Code(s): E78.5 - Hyperlipidemia, unspecified Category: Medical Plan: Low-cholesterol diet increasing physical activity weight loss discussed with the patient follow-up in 6 months with a fasting labs before Orders: Orders Lipid Panel 6 Months E78.5 - Hyperlipidemia, unspecified, Z00.00 - Encounter for general adult medical examination without abnormal findings Vitamin D 25-OH Total 6 Months Z00.00 - Encounter for general adult medical examination without abnormal findings Comprehensive Met. Panel 6 Months E78.5 - Hyperlipidemia, unspecified, Z00.00 - Encounter for general adult medical examination without abnormal findings
[2025-03-01 09:08] VITALS: BP 120/78; PULSE 73; RESP 18; O2SAT 97; BMI 31.3
--- OUTSIDE RECORDS SUMMARY | 2025-03-01 09:24 | XMS_ITS | Clinical Summary ---
Author Organization [facility] Address [address] [place] [address] Care Team Providers Care Food Service Cashier Name Role Phone Ana Laura Lizama MD Primary Care Provider [phone] Surgical History Surgery Date Site/Laterality Comments WISDOM [...] 04/30/2025 3:30 PM EDT Appointment Radiology Department [address] [address] Health Maintenance Due Date Last Done Comments [...] in 12 months. BI-RADS: Category 1: Negative [facility] [address] [place] [id number] [phone] Procedure Note Billy West MD - 07/10/2024 [...] in 12 months. BI-RADS: Category 1: Negative [facility] [address] [address] [phone] Ana Laura Lizama MD IMG XR PROCEDURES Final Result * Pap smear (09/08/2021) 09/08/2021 Narrative HISTORICAL TESTING LAB RESULTING AGENCY - 09/25/2021 11:51 AM EST [id number] THINPREP PAP, IMAGED: NEGATIVE FOR SQUAMOUS INTRAEPITHELIAL [...] Recently Relevant to Health Maintenance Care Teams Food Service Cashier Relationship Specialty Start Date End Date Ana Laura Lizama MD PCP - General Internal Medicine 01/12/19
== END 2025-03-01 09:58 | disposition home or self-care (01) ==
LOC: HO.HMCC 09:02
PROVIDERS: PCP Internal Medicine; Visit Provider Internal Medicine
DX: Z00.00 Encounter for general adult medical examination without abnormal findings (principal); E78.5 Hyperlipidemia, unspecified

== ENCOUNTER → 2025-03-01 09:02 | Outpatient (BNVA) | payer OTHER, SELFPAY | PROVIDERS: PCP Internal Medicine; Visit Provider Internal Medicine | DX: Z00.00 Encounter for general adult medical examination without abnormal findings (principal); E78.5 Hyperlipidemia, unspecified | CPT/HCPCS: 96127 ==